=== PATIENT | female | born 1950 | race Caucasian/White ===

== ENCOUNTER 2017-02-25 06:30 | Emergency (ER) | payer MEDICARE, OTHER ==
--- NOTE | 2017-02-25 06:39 | ED Physician Documentation ---
Epistaxis - HISTORIAN Historian: patient, other (nursing staff) - HPI Timing: still present Severity: mild Associated Symptoms: denies: fever, chills Further Comments: yes (Patient is on Eliquis and ASA for A fib and PVD. Had a nosebleed yesterday. Had several episodes again this AM treated with pressure and ice. Patient's BP has been elevated some.) - ROS MS/SKIN/LYMPH: denies: excessive bruising CVS/RESP: denies: chest pain, difficulty breathing - PAST HX Past History: occasional nosebleeds Other History: A-Fib, other (COPD, PVD, depression, Dysphagia, GERD, CAD, HTN, ) - SOCIAL HX Smoking History: less than 1 pack/day Alcohol Use: other (history of EtOH use in past) Drug Use: none - FAMILY HX Family History: No - VITAL SIGNS Vital Signs: Vital Signs Temp Pulse Resp BP Pulse Ox 144/96 12/13/15 07:58 - REVIEWED ASSESSMENTS Nursing Assessment Reviewed: Yes Vitals Reviewed: Yes <Efren Salazar - Last Filed: 02/25/17 06:37> - HPI Stated Complaint: nose bleed Chief Complaint: General Adult - ROS NEURO/PSYCH: other - VITAL SIGNS Vital Signs: Vital Signs Temp Pulse Resp BP Pulse Ox 98.5 F 75 18 171/111 91 L 02/25/17 06:30 02/25/17 06:30 02/25/17 06:30 02/25/17 06:30 02/25/17 06:30 <Brennan Greer - Last Filed: 02/25/17 12:38> - PAST HX Allergies/Adverse Reactions: Allergies Allergy/AdvReac Type Severity Reaction Status Date / Time No Known Drug Allergies Allergy Verified 08/04/15 17:17 Home Medications: Ambulatory Orders Medication Instructions Recorded Aspirin [Rosemarie] 81 mg PO DAILY 08/04/15 Lisinopril [Zestril] 40 mg PO BID 08/04/15 Metoprolol Succinate [Toprol XL] 75 mg PO Q12 08/04/15 Rivaroxaban [Xarelto] 20 mg PO 1800 08/04/15 oxyCODONE HCL/ACETAMINOPHEN 1 tab PO Q8 PRN 08/04/15 [Percocet 5-325 mg Tablet] Albuterol Sulfate [Ventolin HFA 1 puff IH DAILY #1 inhaler 08/17/15 Inhaler] Atorvastatin Calcium 20 mg PO HS #30 tablet 08/17/15 Budesonide [Pulmicort] 0.5 mg IH BID #60 ampul.neb 08/17/15 Diltiazem HCl [Diltiazem 24Hr Cd] 120 mg PO D #30 cap.er.24h 08/17/15 Lisinopril [Prinivil] 40 mg PO BID #60 tablet 08/17/15 Metoprolol Tartrate [Lopressor] 75 mg PO BID #60 tablet 08/17/15 Rivaroxaban [Xarelto] 20 mg PO HS #30 tablet 08/17/15 Sertraline HCl [Zoloft] 50 mg PO DAILY #30 tablet 08/17/15 oxyCODONE HCL/ACETAMINOPHEN 1 each PO Q6 PRN #0 tablet 08/17/15 [Percocet 5/325] ED Results Lab/Radiology - Orders Orders: ED Orders Category Date Time Status Atenolol [Tenormin] Med 02/25/17 09:00 Ordered 50 mg PO DAILY Lisinopril [Prinivil] Med 02/25/17 06:56 Discontinued 10 mg PO NOW ONE <Brennan Greer - Last Filed: 02/25/17 12:38> Epistaxis Physical Exam - EXAM General Appearance: alert (seems somewhat confused) Nose: no active bleeding, fresh clots (R) (cuterized with silver nitrate) Mouth: lips nml Neuro/Psych: neuro intact, mood/affect nml Respiratory: no resp distress, chest non-tender. No: wheezes, rales, rhonchi Abdomen: non-tender, no organomegaly Skin: nml color <Efren Salazar - Last Filed: 02/25/17 06:37> Discharge <Efren Salazar - Last Filed: 02/25/17 06:37> Decision to Admit: NO Decision Time: 09:25 <Brennan Greer - Last Filed: 02/25/17 12:38> Clincal Impression: Hemorrhage of nose, Hypertension Referrals: Brittany Choe MD [Primary Care Provider] - Additional Instructions: If further bleeding occurs apply pressure to the anterior narse constantly for 30 minutes. Continue present medications. Home Medications: Ambulatory Orders Aspirin [Rosemarie] 81 mg PO DAILY 08/04/15 Lisinopril [Zestril] 40 mg PO BID 08/04/15 Metoprolol Succinate [Toprol XL] 75 mg PO Q12 08/04/15 Rivaroxaban [Xarelto] 20 mg PO 1800 08/04/15 oxyCODONE HCL/ACETAMINOPHEN [Percocet 5-325 mg Tablet] 1 tab PO Q8 PRN 08/04/15 Albuterol Sulfate [Ventolin HFA Inhaler] 1 puff IH DAILY #1 inhaler 08/17/15 Atorvastatin Calcium 20 mg PO HS #30 tablet 08/17/15 Budesonide [Pulmicort] 0.5 mg IH BID #60 ampul.neb 08/17/15 Diltiazem HCl [Diltiazem 24Hr Cd] 120 mg PO D #30 cap.er.24h 08/17/15 Lisinopril [Prinivil] 40 mg PO BID #60 tablet 08/17/15 Metoprolol Tartrate [Lopressor] 75 mg PO BID #60 tablet 08/17/15 Rivaroxaban [Xarelto] 20 mg PO HS #30 tablet 08/17/15 Sertraline HCl [Zoloft] 50 mg PO DAILY #30 tablet 08/17/15 oxyCODONE HCL/ACETAMINOPHEN [Percocet 5/325] 1 each PO Q6 PRN #0 tablet Condition: Stable Disposition: 04 XFER [facility]
[2017-02-25] MEDS: ATENOLOL 25 MG TABLET PO SCH (07:45)
[2017-02-25] MEDS: LISINOPRIL 5 MG TABLET PO ONE (07:45)
[2017-02-25 09:49] VITALS: BP 168/72
== END 2017-02-25 09:25 ==
LOC: ED 06:30
DX: R04.0 Epistaxis (principal); I10 Essential (primary) hypertension
CPT/HCPCS: 30905; 99283